=== PATIENT | female | born 1945 | race Caucasian/White ===

== ENCOUNTER 2018-06-06 12:50 | Outpatient (CLI) | payer MEDICARE ==
[2018-06-06 14:25] LABS: MEAN CORPUSCULAR HEMOGLOBIN 35.2 pg (27.0-34.8); MEAN CORPUSCULAR VOLUME 103.6 fL (80-100); MEAN PLATELET VOLUME 9.3 fL (7.4-10.4); PLATELET COUNT 225 x10^3/uL (130-400); RED BLOOD COUNT 4.65 x10^6/uL (3.82-5.3); RED CELL DISTRIBUTION WIDTH 15.6 % (9.6-15.2)
[2018-06-06 14:26] LABS: INTERNATIONAL NORMALIZED RATIO 1.01 (0.93-1.1); PROTHROMBIN TIME 10.7 Seconds (9.6-11.5)
[2018-06-06 14:27] LABS: ALANINE AMINOTRANSFERASE 29 U/L (12-78); ALBUMIN 3.7 g/dL (3.4-5.0); ANION GAP 11 mmol/L (5-15); CALCIUM 9.8 mg/dL (8.5-10.1); CHLORIDE 103 mmol/L (98-107)
[2018-06-06 14:30] LABS: ALKALINE PHOSPHATASE 65 U/L (45-117); BILIRUBIN,TOTAL 0.5 mg/dL (0.2-1.0); CREATININE 0.82 mg/dL (0.55-1.02); TOTAL PROTEIN 7.8 g/dL (6.4-8.2)
[2018-06-06 15:16] LABS: HEMOGLOBIN A1C 5.3 % (4.2-6.3)
[2018-06-06 15:41] LABS: BASOPHILS # (AUTO) 0.06 x10^3/uL (0-0.1); BASOPHILS % (AUTO) 1 % (0-1); EOSINOPHILS # (AUTO) 0.39 x10^3/uL (0-0.4); EOSINOPHILS % (AUTO) 5 % (1-7); LYMPHOCYTES # (AUTO) 2.54 x10^3/uL (1-3.4); LYMPHOCYTES % (AUTO) 34 % (22-44); MD SCAN; MONOCYTES # (AUTO) 0.67 x10^3/uL (0.2-0.8); MONOCYTES % (AUTO) 9 % (2-9); NEUTROPHILS # (AUTO) 3.92 x10^3/uL (1.8-6.8); NEUTROPHILS % (AUTO) 52 % (42-75)
[2018-06-11] MEDS ORDERED: FLUT9.9S NAS (10:46)
[2018-06-11] MEDS ORDERED: CHOL2000 PO (10:46)
[2018-06-11] MEDS ORDERED: METO-99 PO (10:46)
[2018-06-11] MEDS ORDERED: MELO15TA24 PO (10:46)
[2018-06-11] MEDS ORDERED: TRIA1TAB3 PO (10:46)
[2018-06-11] MEDS ORDERED: Serrapeptase PO (10:46)
[2018-06-11] MEDS ORDERED: ALBU18HF INH (10:46)
== END 2018-06-06 23:59 | disposition home or self-care (01) ==
LOC: STAR 12:50
PROVIDERS: ATTEND Orthopaedic Surgery
DX: Z01.818 Encounter for other preprocedural examination (principal); M17.11 Unilateral primary osteoarthritis, right knee
CPT/HCPCS: 36415; 80053; 83036; 85025; 85610; 85730; 87081; 93005

== ENCOUNTER 2018-06-21 11:53 | Observation (INO) | payer MEDICARE ==
[~2018-06-21] VITALS: Ht 161.3 cm; Wt 82.6 kg
[~2018-06-21 11:53] MED LIST: ALBU18HF INH; CHOL2000 PO; EPINEPHRINE 1 MG/ML, 1ML ONE; FLUT9.9S NAS; KETOROLAC 60 MG/2 ML ONE; MELO15TA24 PO; METO-99 PO; ROPIvacaine/PF 0.5%, 30 ML ONE; SODIUM CHLORIDE 0.9% 50 ML ONE; Serrapeptase PO; TRANEXAMIC ACID 100 MG/ML, 10ML ONE; TRIA1TAB3 PO; VANCOMYCIN 1,000 MG ONE
[2018-06-21] MEDS: NS + 20MEQ KCL 1,000 ML IV SCH ×2 (12:20→17:26)
[2018-06-21] MEDS ORDERED: LACTATED RINGERS 1,000 ML IV SCH (12:21)
[2018-06-21] MEDS ORDERED: OXYcodone IR 5MG TABLET PO PRN (12:30)
[2018-06-21] MEDS ORDERED: FLUTICASONE NASAL SPRAY 16GM NAS PRN (12:30)
[2018-06-21] MEDS ORDERED: ZOLPIDEM 5MG TABLET PO PRN (12:30)
[2018-06-21] MEDS ORDERED: GABAPENTIN 300 MG CAPSULE PO ONE (12:30)
[2018-06-21] MEDS ORDERED: ALBUTEROL SULFATE 2.5 MG/3 ML NPPB PRN (12:30)
[2018-06-21] MEDS ORDERED: MAGNESIUM HYDROXIDE 8%, 30ML UDC PO PRN (12:30)
[2018-06-21] MEDS ORDERED: ACETAMINOPHEN 500 MG TABLET PO ONE (12:30)
[2018-06-21] MEDS ORDERED: ONDANSETRON 4 MG TABLET PO PRN (12:30)
[2018-06-21] MEDS ORDERED: ONDANSETRON 2MG/ML, 2ML IV PRN ×2 (12:30→13:30)
[2018-06-21] MEDS ORDERED: SENNA/DOCUSATE TABLET PO PRN (12:30)
[2018-06-21] MEDS ORDERED: DIPHENHYDRAMINE 50 MG CAPSULE PO PRN (12:30)
[2018-06-21] MEDS ORDERED: SCOPOLAMINE PATCH, 1.5MG PATCH.TD72 TD ONE (12:30)
[2018-06-21] MEDS ORDERED: BISACODYL 10 MG SUPP PR PRN (12:30)
[2018-06-21] MEDS ORDERED: ACETAMINOPHEN 650 MG/20.3 ML UDC PO PRN (12:30)
[2018-06-21] MEDS ORDERED: HYDROmorphone 1 MG/ML, 1ML IV PRN (12:30)
[2018-06-21] MEDS: CEFAZOLIN PMX 2GM/50ML 50 ML IVPB SCH ×2 (12:30→22:08)
[2018-06-21 12:38] VITALS: BP 146/85
[2018-06-21] MEDS ORDERED: LIDOCAINE-MPF 1%, 2ML ONE (13:04)
[2018-06-21] MEDS ORDERED: MIDAZOLAM 1 MG/ML, 2ML ONE (13:22)
[2018-06-21] MEDS ORDERED: FENTANYL PF 250 MCG/5ML ONE (13:23)
[2018-06-21] MEDS ORDERED: PROMETHAZINE 25 MG/ML, 1ML IV PRN (13:30)
[2018-06-21] MEDS ORDERED: OXYcodone 5 MG/5 ML ORAL.SOL UDC PO PRN (13:30)
[2018-06-21] MEDS ORDERED: hydrALAzine 20 MG/ML, 1ML IV PRN (13:30)
[2018-06-21] MEDS ORDERED: DIAZEPAM 5 MG/ML, 2ML IVPush PRN (13:30)
[2018-06-21] MEDS ORDERED: MEPERIDINE/PF 25MG/0.5ML IVPush PRN (13:30)
[2018-06-21] MEDS ORDERED: LABETALOL 5 MG/ML SYRINGE IV PRN (13:30)
[2018-06-21] MEDS ORDERED: CEFAZOLIN 1,000 MG ONE (14:09)
[2018-06-21] MEDS ORDERED: DEXAMETHASONE 4 MG/ML, 1ML ONE (14:09)
[2018-06-21] MEDS ORDERED: ONDANSETRON 2MG/ML, 2ML ONE (14:09)
[2018-06-21] MEDS ORDERED: ROCURONIUM 10 MG/ML,10ML ONE (14:09)
[2018-06-21] MEDS ORDERED: PROPOFOL 10 MG/ML, 20ML ONE (14:09)
[2018-06-21] MEDS ORDERED: HYDROmorphone 2 MG/ML, 1ML ONE (15:34)
[2018-06-21] MEDS ORDERED: OXYcodone 5 MG/5 ML ORAL.SOL UDC ONE (15:34)
[2018-06-21] MEDS ORDERED: FENTANYL PF 100 MCG/2ML ONE (15:34)
[2018-06-21] MEDS: FENTANYL PF 100 MCG/2ML IV PRN ×2 (15:39→15:47)
[2018-06-21] MEDS: HYDROmorphone 2 MG/ML, 1ML IVPush PRN ×3 (15:39→16:10)
[2018-06-21] MEDS ORDERED: MEPERIDINE/PF 25MG/ML,1ML ONE (15:41)
[2018-06-21] MEDS ORDERED: OXYC5CAP2 PO (17:12)
[2018-06-21] MEDS ORDERED: TRAM50TA2 PO (17:14)
[2018-06-21] MEDS ORDERED: ONDA4TAB7 PO (17:14)
[2018-06-21] MEDS: ASPIRIN 81 MG TABLET EC PO SCH (17:29)
[2018-06-21 19:14] VITALS: BP 119/58
[2018-06-21] MEDS: DOCUSATE 100 MG CAPSULE PO SCH (21:57)
[2018-06-21] MEDS: HYDROcodone/APAP 5/325 TABLET PO PRN (22:33)
[2018-06-22 01:35] VITALS: BP 116/54
[2018-06-22] MEDS: HYDROcodone/APAP 5/325 TABLET PO PRN ×2 (03:35→08:22)
[2018-06-22] MEDS ORDERED: DEXAMETHASONE 4 MG/ML, 1ML IVPush SCH (06:00)
[2018-06-22] MEDS: ASPIRIN 81 MG TABLET EC PO SCH (06:07)
[2018-06-22] MEDS ORDERED: CEFAZOLIN PMX 2GM/50ML 50 ML IVPB ONE (06:15)
[2018-06-22 07:30] VITALS: BP 114/54
[2018-06-22] MEDS: DOCUSATE 100 MG CAPSULE PO SCH (08:23)
[2018-06-22] MEDS ORDERED: METOPROLOL TARTRATE 100 MG TABLET PO SCH (09:00)
[2018-06-22] MEDS ORDERED: TRIAMTERENE-HCTZ 37.5/25 MG TABLET PO SCH (09:00)
== END 2018-06-22 10:14 | disposition home or self-care (01) ==
LOC: OR 11:53 → 4NOR 16:50 → INTOOBSV 22:11 → OR 22:21 → DCLOUNGE 06-22 10:02
PROVIDERS: ADMIT Orthopaedic Surgery; ATTEND Orthopaedic Surgery
DX: M17.11 Unilateral primary osteoarthritis, right knee (principal); Z96.651 Presence of right artificial knee joint
CPT/HCPCS: 27447; 36415; 85014; 85018; 96365; 96366; 96375; 97161; 97166; C1713; C1776; G0378; J0171; J0690; J1100; J1170; J1885; J2175; J2250; J2405; J2704; J2795; J3010; J3370; J3480